=== PATIENT | male | born 1960 | race Caucasian/White ===

== ENCOUNTER 2024-12-07 20:37 | Emergency (ER) | payer OTHER, SELFPAY ==
[2024-12-07 20:42] VITALS: BP 190/86
[2024-12-07 21:07] LABS: % Basophils 0.4 % (0-2); % Eosinophils 2.7 % (0-6); % Immature Granulocytes 0.4 % (0-0.5); % Lymphocytes 33.8 % (20.5-51.1); % Monocytes 8.4 % (1.7-9.3); % Neutrophils 54.3 % (42.2-75.2); Absolute Eosinophils 0.3 10^3/uL (0-0.7); Absolute Lymphocytes 3.7 10^3/uL (1.2-3.4); Absolute Monocytes 0.9 10^3/uL (0.1-0.6); Hematocrit 45.9 % (39.0-52.0); Hemoglobin 15.7 g/dL (13.0-18.0); Mean Corp Hgb Conc. 34.2 g/dL (33.0-37.0); Mean Corpuscular Hgb 29.9 pg (27.0-31.0); Mean Corpuscular Volume 87.4 fL (80.0-94.0); Mean Platelet Volume 9.5 fL (7.4-10.4); Nucleated Red Blood Cells % 0 % (-); Platelet Count 252 10^3/uL (130-400); Red Blood Cell Count 5.25 10^6/uL (4.70-6.10); Red Cell Dist. Width 12.6 % (11.5-14.5)
[2024-12-07 21:23] LABS: ALT (SGPT) 22 U/L (0-50); AST (SGOT) 21 U/L (17-59); Albumin 4.5 g/dl (3.5-5.0); Alkaline Phosphatase 70 U/L (38-126); Blood Urea Nitrogen 17 mg/dl (9-20); Calcium 9.3 mg/dl (8.4-10.2); Carbon Dioxide 24 mmol/L (22-30); Chloride 110 mmol/L (98-107); Glucose 122 mg/dl (70-99); Potassium 4.1 mmol/L (3.5-5.1); Sodium 141 mmol/L (135-145); Total Bilirubin 0.8 mg/dl (0.2-1.3); Total Protein 7.6 g/dl (6.3-8.2); eGFR > 60.00
[2024-12-07 21:27] LABS: C-Reactive Protein < 5.00 mg/L (0.0-10.00); Erythrocyte Sed Rate 20 mm/hour (0-20)
[2024-12-07 22:43] VITALS: BP 159/88
--- NOTE | 2024-12-08 01:42 | ED.GENMED ---
History of Present Illness
General
Chief Complaint: Swelling
Source: patient
Exam Limitations: none
Time Seen by Provider: 12/08/24 01:22
Nursing documentation reviewed up to this point in time: agreed with
History of Present Illness
History of Present Illness:
This is a 64 y/o male with a past medical history of hypertension, hyperlipidemia, diabetes who presents to the emergency department today with concerns of a transient episode of changes in his speech and apparent left-sided facial droop. Patient
reports that he was at home earlier this evening and around 6 PM when he reports that his expressed concern about his speech. Patient reports that he said 1 word in a different way and his expressed concern that he could be slurring his
speech. Patient states that he did not appreciate any changes to his speech or speech slurring. Patient reports that there is no prolonged time with speech changes and he states that his just noticed it with a few words. This has since
resolved. His also concerned about a potential facial droop. Patient states that he has not have the facial droop. Patient does feel like he does have some mild swelling to his left side of his face. He reports that this started after he
was cutting grass and got hit with a lot of pollen in his face. Of note, he did have a recent sinus infection and finished a course of antibiotics. He feels like his sinus symptoms have been improving. He denies any facial pain, fevers or chills,
chest pain, shortness of breath. He denies double vision, visual loss, facial paresthesias, extremity paresthesias or weakness, dysphagia. He is currently asymptomatic.
Review of Systems
Review of Systems
All Other Systems: ROS reviewed and negative except as documented in HPI and ROS
Phy Exam
Physical Exam
Physical Exam:
General: Patient is well appearing and in no acute distress; non-toxic
Skin: Warm and dry, no rashes or lesions
Head: Normocephalic, atraumatic. No tenderness palpation over the frontal and maxillary sinuses. No tenderness to palpation over the left side of the face. No overlying erythema
Eyes: Sclera non-icteric. EOMs intact.
Cardiac: Regular rate and rhythm, no murmur
Peripheral Vascular: No lower extremity swelling or edema
Pulm: Normal respiratory effort, no wheezes, rales, rhonchi
Neuro: CN II-XII intact, no focal neurologic deficits--no facial droop, no tongue deviation
Psychiatric: Appropriate mood and affect.
Scores
NIH Stroke Score
Level of Consciousness: 0 - Alert
LOC Questions: 0-Answers both correctly
LOC Commands: 0-Performs both correctly
Best Horizontal Gaze: 0-Normal
Visual Gomez: 0=Normal, no visual loss
Facial Palsy: 0=Normal, symmetrical
Motor - Right Arm: 0=No drift 10 seconds
Motor - Left Arm: 0=No drift 10 seconds
Motor - Right Le-No drift 5 seconds
Motor - Left Le-No drift 5 seconds
Limb Ataxia: 0-Absent
Sensation: 0-Normal
Best Language: 0-No aphasia
Dysarthria: 0-Normal
Extinction and Inattention: 0-No abnormality
NIH Total Score:: 0
Heart Failure Risk
Heart Failure Risk Score: Not Applicable
Course
Orders/Labs/Results
Orders:
Orders
12/07/24 20:49
CT Head W/o Iv Contrast Urgent
Comment:
Reason For Exam: stroke symptoms
12/07/24 20:55
C-Reactive Protein Urgent
CMP [Comprehensive Metabolic Panel] Urgent
Complete Blood Count/With Diff Urgent
Sed Rate [Erythrocyte Sed Rate] Urgent
Abnormal Lab Results
12/07/24
20:55
WBC 11.0 H 10^3/uL
(4.8-10.8)
Absolute Lymphs (auto) 3.7 H 10^3/uL
(1.2-3.4)
Absolute Monos (auto) 0.9 H 10^3/uL
(0.1-0.6)
Chloride 110 H mmol/L
(98-107)
Glucose 122 H mg/dl
(70-99)
12/07/24 20:55
12/07/24 20:55
Vital Signs
Initial and Last Documented VS:
Initial Vital Signs
Temp Pulse Resp BP Pulse Ox
98.2 F 71 18 190/86 96
12/07/24 20:42 12/07/24 20:42 12/07/24 20:42 12/07/24 20:42 12/07/24 20:42
Last Documented Vital Signs
Temp Pulse Resp BP Pulse Ox
98 F 69 18 159/88 95
12/08/24 01:00 12/07/24 22:43 12/07/24 22:43 12/07/24 22:43 12/08/24 00:45
MDM/Problems Addressed
Differential Diagnosis Includes:
Differentials include sinusitis, cellulitis, allergic rhinitis, TIA/CVA
MDM/Problems Addressed:
64-year-old male presents emergency department today with concerns of apparent slurring of words and left-sided facial droop. Patient himself reports that he did not notice a facial droop or any changes to his speech however his was concerned
and he decided to be evaluated. Patient is unable to identify a length of time that the symptoms occurred because patient reports that he did not notice the symptoms at all. His son believes that his was concerned because he said 1 word
slightly differently. I was called in the see the patient as patient was trying to LWOT. My evaluation, patient is well-appearing no acute distress I am not able to appreciate any facial droop or neurologic deficit on exam. His speech is normal.
There is no facial swelling that I am able to appreciate however the swelling he could have experienced earlier may have been related to his sinus infection or allergic rhinitis. His NIH is 0. His CT scan of the head shows no acute intracranial
abnormality. I did discuss potential admission with patient for TIA workup however patient is requesting to leave. Did discuss findings with ER attending physician. Do not feel that is necessary to sign patient out AMA at this time. Considering
unclear episode of symptoms and considering patient did not experience any of the symptoms himself, no deficits appreciated by other family members low suspicion for TIA. Did discuss smoking cessation. Discussed close follow-up with his primary
and discussed strict return precautions.
Chronic conditions affecting care:
Hypertension, hyperlipidemia, diabetes
*Pulse Oximetry
Patient hypoxic: no
*Critical Care Note
Total Time (30-74mins, 75-104mins- exclusive of procedures): Not Applicable
Data Reviewed
Review of Other/Old Records Reveals: Records (Reviewed ER physician documentation from 04/14/2022 patient seen for epididymitis)
Source: patient and records
ED Attending Note
-
Portions of this chart may have been created with voice recognition software.� Occasional wrong word or��sound alike� substitutions may have occurred due to the inherent limitations of voice recognition software.
Discharge Plan
Departure
Patient Disposition: Home (Routine Discharge)
Date of Disposition: 12/08/24
Time of Disposition: 01:39
Patient with high blood pressure during this ER visit?: Yes
Condition: Good
Discharge Problem:
Alteration in speech, Sinus symptom
Instructions: Sinusitis in adults, Transient Ischemic Attack ED, BLOOD PRESSURE
Prescriptions:
No Action
sulfamethoxazole-trimethoprim [Bactrim DS] 800-160 mg tablet
1 tab PO DAILY Qty: 10 0RF
Referrals:
Vandana Berg MD [Non-Admitting Privileges, Neurology] - Call in 1-3 days for appt
Manny Jung MD [Family Provider, Family Practice]
Activity Restrictions/Additional Instructions:
Please call your primary care provider tomorrow to schedule a follow up appointment.
PLEASE RETURN TO THE ER SHOULD YOU DEVELOP DIFFICULTY SPEAKING, CONFUSION, FACIAL DROOP, DIFFICULTY AMBULATING, WEAKNESS IN ONE EXTREMITY, NECK PAIN, DIFFICULTY SWALLOWING, DIZZINESS, LIGHTHEADEDNESS, VISUAL CHANGES, DOUBLE VISION, OR ANY OTHER
SIGNS OR SYMPTOMS WORRISOME TO YOU.
Interventions
Interventions:
*Risk Screen - Suicide Last Done: 12/08/24 01:50
*General Assessment Last Done: 12/07/24 20:42
*Neglect/Abuse Screening Last Done: 12/08/24 00:23
*ED- Fall Risk Assessment Last Done: 12/08/24 00:23
*ED COVID-19 Vaccine History Last Done: 12/08/24 01:49
*Nursing Disposition Last Done: 12/08/24 01:50
ED-Skin Assessment Last Done: 12/08/24 00:23
ED- Pulmonary Assessment Last Done: 12/08/24 00:23
ED- Cardiac Assessment Last Done: 12/08/24 00:23
Discharge Date and Time
Discharge Date/Time: 12/08/24 01:51
Print Language: NAMIBIAN
== END 2024-12-08 01:51 | disposition home or self-care (01) ==
LOC: EMR 20:37
PROVIDERS: Emergency Medicine; EMERGENCY PHYSICIAN Emergency Medicine; FAMILY PHYSICIAN Family Medicine
DX: R47.81 Slurred speech (principal); I10 Essential (primary) hypertension; E78.00 Pure hypercholesterolemia, unspecified; E11.9 Type 2 diabetes mellitus without complications
CPT/HCPCS: 99284; 70450; 80053; 85025; 85652; 86140